=== PATIENT | male | born 1980 | race African-American/Black ===

== ENCOUNTER → 2017-02-21 | Outpatient (CLI) | payer BC ==
[~2017-02-21] MED LIST: LEXAPRO PO; LISINOPRIL PO; LOPRESSOR PO
--- NOTE | ~2017-02-21 | US77 ---
[facility] A Service of [facility] RADIOLOGY TEXT RESULTS PATIENT: GHANSHYAM ALFARO LOCATION: [facility] : [birth year] UNIT #: [id number] AGE: [address]: Nasir Pino MD SEX: M ORDER DR: [id number] [facility] [address] [place], [place] [address] [id number] O MR#: [id number] Acc #: [id number] NAME: GHANSHYAM ALFARO : 1980 SEX: M STUDY DATE/TIME: 02/21/2017 13:02 UNIT: [facility] ROOM: STUDY DESCRIPTION: US Kidney Bilateral Complete Attending Physician: Nasir Pino Jr., M.D. Referring Physician: Nasir Pino Jr., M.D. Ordering Physician: Nasir Pino Jr., M.D. Primary Care Physician: Abel Johnson M.D. MEDICAL IMAGING REPORT This report is preliminary unless electronic signature is present EXAM Renal ultrasound, 02/21/17. HISTORY Chronic kidney disease stage I. Benign essential hypertension. FINDINGS The right kidney measures 10.1 cm while the left kidney measures 12.1 cm in longitudinal dimensions. There is no evidence of hydronephrosis or nephrolithiasis. No cystic or solid mass lesions were seen on either kidney and there is normal renal cortical echogenicity. Images of the bladder are normal. IMPRESSION 1. Negative renal ultrasound. 2. Images of the bladder are normal. Dictated by... Logan Gilliam M.D. THIS IS AN ELECTRONICALLY VERIFIED REPORT Logan Gilliam M.D. at 02/22/2017 8:29 AM JAMARI/fawn TD: 02/21/2017 18:13 JOB #: [id number] MEDICAL IMAGING REPORT Page 1 of 1 COPY
== END | disposition home or self-care (01) ==
LOC: CGUS 12:28
DX: I12.9 Hypertensive chronic kidney disease with stage 1 through stage 4 chronic kidney disease, or unspecified chronic kidney disease (principal); N18.1 Chronic kidney disease, stage 1
CPT/HCPCS: 76770